=== PATIENT | female | born 1990 | race Caucasian/White ===

== ENCOUNTER 2022-01-25 09:55 | Inpatient (IN) | payer OTHER ==
[~2022-01-25] VITALS: Ht 157.5 cm; Wt 71.7 kg
[2022-01-25] MEDS ORDERED: SYNTHROID50 MCG PO (16:59)
[2022-01-25] MEDS ORDERED: PRENATAL TABLE1 EAC3 PO (17:00)
== END 2022-01-27 09:55 | disposition home or self-care (01) | DRG 833 ==
LOC: OBS/DEL 09:55 → LDR 01-26 08:52 → OB/GYN 01-26 08:52
PROVIDERS: ADMIT Obstetrics & Gynecology Maternal & Fetal Medicine; ATTEND Obstetrics & Gynecology Maternal & Fetal Medicine
PROC: 4A1HXCZ Monitoring of Products of Conception, Cardiac Rate, External Approach (ICD-10-PCS; principal; 2022-01-26)
DX: O13.3 Gestational [pregnancy-induced] hypertension without significant proteinuria, third trimester (principal); Z3A.34 34 weeks gestation of pregnancy; Z20.822 Contact with and (suspected) exposure to COVID-19

== ENCOUNTER 2022-02-01 08:15 | Outpatient (CLI) | payer OTHER ==
[~2022-02-01 08:15] MED LIST: PRENATAL TABLE1 EAC3 PO; SYNTHROID50 MCG PO
== END 2022-02-01 08:49 | disposition home or self-care (01) ==
LOC: NST 08:15
PROVIDERS: ATTEND Obstetrics & Gynecology
DX: Z34.83 Encounter for supervision of other normal pregnancy, third trimester (principal)

== ENCOUNTER 2022-02-01 08:36 | Inpatient (IN) | payer OTHER ==
[~2022-02-01] VITALS: Ht 157.5 cm; Wt 71.7 kg
== END 2022-02-04 13:07 | disposition home or self-care (01) | DRG 788 ==
LOC: OBS/DEL 08:36 → LDR 11:53 → O/R 14:04 → OB/GYN 14:15
PROVIDERS: ADMIT Obstetrics & Gynecology; ATTEND Obstetrics & Gynecology
PROC: 4A1HXCZ Monitoring of Products of Conception, Cardiac Rate, External Approach (ICD-10-PCS; 2022-02-01)
PROC: 10D00Z1 Extraction of Products of Conception, Low, Open Approach (ICD-10-PCS; principal; 2022-02-01 12:30)
DX: O60.14X0 Preterm labor third trimester with preterm delivery third trimester, not applicable or unspecified (principal); O14.14 Severe pre-eclampsia complicating childbirth; Z3A.35 35 weeks gestation of pregnancy; Z37.0 Single live birth; Z20.822 Contact with and (suspected) exposure to COVID-19